=== PATIENT | female | born 1990 | race Hispanic/Latino ===

== ENCOUNTER 2017-08-27 19:27 | Emergency (ER) | payer OTHER ==
[2017-08-27] MEDS ORDERED: Sodium Chloride 0.9% 1,000 ML IV STA (20:02)
--- NOTE | 2017-08-27 20:10 | ED PDOC ---
HPI: Abdomen Chief Complaint (Provider): "anita been vomiting and having diarrhea with RUQ pain since this afternoon" History Per: Patient History/Exam Limitations: no limitations Onset/Duration Of Symptoms: Hrs Outside of [place] travel?: No Current Symptoms Are (Timing): Still Present Severity: Mild Pain Scale Rating Of: 7 Location Of Pain/Discomfort: RUQ Quality Of Discomfort: Aching Associated Symptoms: Chills, Nausea, Vomiting, Diarrhea, Loss Of Appetite. denies: Fever, Back Pain, Chest Pain, Constipation, Urinary Symptoms Exacerbating Factors: None Alleviating Factors: None Last Bowel Movement: Today <Donavan Osorio - Last Filed: 08/27/17 21:24> <Lou Alvarez - Last Filed: 08/27/17 23:49> Chief Complaint (Nursing): Abdominal Pain Additional Complaint(s): 27 y/o female, with hx of cholecystecomy in 2009, presents for evaluation of RUQ pain, N/V/D since approx 1:30 this afternoon. Pt reports she woke up this morning feeling nauseous. Vomiting started at 1:30pm, with approx 5 episodes of NBNB emesis associated with several episodes of dry heaves. Diarrhea started at approx the same time, with 7 episodes of watery, NB, non-mucoid episodes. She reports RUQ pain started around 2, the pain is 7/10, constant, and without radiation. She reports the pain was similar to when she had cholecystitis in 2009 leading to the resection of her Gallbladder. She reports associated chills , but no fever. Has been taking in scant fluids during the day, but less than normal. No sick contacts. No recent travel. Drank 1 glass of wine last night. No other ETOH use in hx. No other complaints. (Donavan Osorio) Supervising Attending Note - Supervising Attending Note The Documented history was done by the: Physician Cuff Setter Overlock The documented physical exam was done by the: Physician Cuff Setter Overlock - Attestation: I have personally seen and examined this patient.: Yes I have fully participated in the care of the patient.: Yes I have reviewed all pertinent clinical information: Yes <Lou Alvarez - Last Filed: 08/27/17 23:49> Past Medical History - Medical History PMH: No Chronic Diseases - Surgical History Surgical History: Cholecystectomy - Family History Family History: States: Unknown Family Hx <RamyDonavan moreno - Last Filed: 08/27/17 21:24> <AlvarezLou brown Rik - Last Filed: 08/27/17 23:49> Vital Signs: Last Vital Signs Temp 98.4 F 08/27/17 21:07 Pulse 81 08/27/17 21:07 Resp 17 08/27/17 21:07 BP 125/78 08/27/17 21:07 Pulse Ox 99 08/27/17 21:24 - Home Medications Home Medications: Ambulatory Orders Medication Instructions Recorded Dicyclomine [Bentyl] 20 mg PO QID PRN #20 tab 08/27/17 Ondansetron ODT [Zofran ODT] 1 odt PO Q6 PRN #30 odt 08/27/17 - Allergies Allergies/Adverse Reactions: Allergies Allergy/AdvReac Type Severity Reaction Status Date / Time No Known Allergies Allergy Verified 08/27/17 19:41 Review of Systems Constitutional: Positive for: Chills. Negative for: Fever, Sweats, Weakness, Malaise Eyes: Negative for: Vision Change Cardiovascular: Negative for: Chest Pain, Palpitations, Orthopnea, Light Headedness Respiratory: Negative for: Cough, Shortness of Breath, SOB with Exertion, Pleuritic Pain, Wheezing Gastrointestinal: Positive for: Nausea, Vomiting, Abdominal Pain, Diarrhea. Negative for: Melena, Hematochezia, Hematemesis Genitourinary Female: Negative for: Dysuria, Frequency, Incontinence Skin: Negative for: Rash, Jaundice Neurological: Negative for: Weakness, Numbness, Confusion Psych: Negative for: Anxiety <Donavan Osorio - Last Filed: 08/27/17 21:24> Physical Exam - Reviewed Vital Signs Reviewed: Yes - Physical Exam Appears: Positive for: Well, Non-toxic, No Acute Distress Head Exam: Positive for: ATRAUMATIC, NORMAL INSPECTION, NORMOCEPHALIC Skin: Positive for: Normal Color, Warm, Dry. Negative for: Diaphoresis, Pallor , Jaundice Eye Exam: Positive for: EOMI, PERRL. Negative for: Conjunctival injection, Scleral icterus ENT: Positive for: Pharynx Is (clear), Other (lips dry, mucous membranes somewhat dry ) Neck: Positive for: Painless ROM, Supple Cardiovascular/Chest: Positive for: Regular Rate, Rhythm. Negative for: JVD Respiratory: Positive for: Normal Breath Sounds. Negative for: Crackles, Rales , Rhonchi, Wheezing, Respiratory Distress Pulses-Radial (L): 2+ Pulses-Radial (R): 2+ Gastrointestinal/Abdominal: Positive for: Bowel Sounds (normal ), Soft, Tenderness (RUQ), Other (+murphys sign ). 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 <Donavan Osorio - Last Filed: 08/27/17 21:24> - Laboratory Results Result Diagrams: 08/27/17 20:05 08/27/17 20:05 - ECG O2 Sat by Pulse Oximetry: 99 - Progress Re-evaluation Time: 21:08 Condition: Re-examined, Improved <Donavan Osorio - Last Filed: 08/27/17 21:24> - Laboratory Results Result Diagrams: 08/27/17 20:05 08/27/17 20:05 <Lou Alvarez - Last Filed: 08/27/17 23:49> - Progress ED Course And Treament: DD: gastroenteritis, pancreatitis, hepatitis -cbc -cmp -lipase -lactate -upreg -udip -1l ns bolus -iv zofran -po bentyl -toradol -po challenge -re-evaluate pt re-evalauted at 21:08, reports feeling much better. Tolerated PO intake w/o issue. No other complaints/concerns. (Donavan Osorio) Disposition - Patient ED Disposition Is Patient to be Admitted: No - Disposition Disposition: Routine/Home Disposition Time: 21:09 <Donavan Osorio - Last Filed: 08/27/17 21:24> <Lou Alvarez - Last Filed: 08/27/17 23:49> - Clinical Impression Clinical Impression: Gastroenteritis, Elevated partial thromboplastin time (PTT) - Disposition Referrals: Jean Mello MD [Staff Provider] - Condition: IMPROVED Additional Instructions: be sure to drink lots of fluids start bland diet with foods such as dry toast, bananas once appetite returns if symptoms persist or worsen and you are unable to keep down fluids return for further evaluation and treatment follow with hematology Dr. Mello for evaluation of abnormal labs Prescriptions: Dicyclomine [Bentyl] 20 mg PO QID PRN #20 tab PRN Reason: abdominal pain Ondansetron ODT [Zofran ODT] 1 odt PO Q6 PRN #30 odt PRN Reason: Nausea/Vomiting Instructions: Diarrhea in Adolescents and Adults, Gastroenteritis (ED) Forms: [facility] (Taiwanese) Print Language: ALBANIAN
[2017-08-27 20:27] LABS: BASO % 0.1 % (0.0-2.0); EOS % 0.4 % (0.0-4.0); HEMOGLOBIN 14.2 g/dL (12.0-16.0); LYMPH # 0.2 K/uL (1.0-4.3); LYMPH % 2.3 % (20.0-40.0); MEAN CELL VOLUME 92.7 fl (81.0-99.0); MEAN CORPUSCULAR HEMOGLOBIN 31.9 pg (27.0-31.0); MEAN CORPUSCULAR HGB CONC 34.4 g/dL (33.0-37.0); MEAN PLATELET VOLUME 7.8 fl (7.2-11.7); MONO # 0.2 K/uL (0.0-0.8); MONO % 1.7 % (0.0-10.0); NEUT # 8.5 K/uL (1.8-7.0); NEUT % 95.5 % (50.0-75.0); NRBC % 0.1 % (0.0-0.0); PLATELET COUNT 237 K/uL (130-400); RBC 4.46 Mil/uL (3.80-5.20); RED CELL DISTRIBUTION WIDTH 13.3 % (11.5-14.5); WHITE BLOOD COUNT 8.9 K/uL (4.8-10.8)
[2017-08-27 20:37] LABS: ALB/GLOB RATIO 1.4 (1.0-2.1); ALBUMIN 4.4 g/dL (3.5-5.0); ALT/SGPT 35 U/L (9-52); AST/SGOT 28 U/L (14-36); BLOOD UREA NITROGEN 14 mg/dl (7-17); CALCIUM 9.3 mg/dL (8.4-10.2); GFR AFRICAN-AMERICAN > 60; GFR NON-AFRICAN AMERICAN > 60; INR 1.2 (0.9-1.2); LIPASE 148 U/L (23-300); PARTIAL THROMBOPLASTIN TIME 67.1 Seconds (25.6-37.1); PROTHROMBIN TIME 13.4 Seconds (9.8-13.1)
[2017-08-27 21:08] VITALS: BP 125/78; PULSE 81; RESP 17; TEMP 98.4
[2017-08-27 21:15] VITALS: O2SAT 99
[2017-08-27 21:20] LABS: BANDS 1 % (0-2); LYMPHOCYTE 4 % (20-50); MONOCYTE 2 % (0-10); NEUTROPHIL 90 % (42-75); PLATELET ESTIMATE NORMAL (NORMAL); REACTIVE LYMPHOCYTES 3 % (0-0); TOTAL CELLS COUNTED 100
== END 2017-08-27 21:38 | disposition home or self-care (01) ==
LOC: H.ER 19:27
DX: K52.9 Noninfective gastroenteritis and colitis, unspecified (principal); R79.1 Abnormal coagulation profile
CPT/HCPCS: 80053; 81025; 83605; 83690; 83735; 84100; 85025; 85610; 85730; 96374; 96375; 99284; J1885; J2405; J7040